=== PATIENT | male | born 1980 | race Caucasian/White ===

== ENCOUNTER 2020-06-11 12:51 | Outpatient (CLI) | payer OTHER ==
--- NOTE | 2020-06-11 14:06 | MRI Report ---
PROCEDURE: Lumbar Spine W/O INDICATIONS: LOW BACK PAIN TECHNIQUE: Noncontrast sagittal T1 spin echo and T2 fast echo, sagittal STIR, axial T1 and T2 fast spin echo thr ough the lumbar spine. In cases with scoliosis, additional coronal T2 fast spin echo may be performe d. COMPARISON: Plain films dated 05.20.20 FINDINGS: Image quality: Excellent. Alignment and Curvature: 5 lumbar type vertebral bodies are present by plain film. Minimal grade 1 r etrolisthesis of L4 on L5. There is otherwise normal bony alignment. Bone Marrow: Marrow is of normal overall signal. No acute vertebral body compression fractures. Mi ld reactive signal within the end plates adjacent to the L4-L5 intervertebral disc. Spinal Cord: Conus medullaris terminates at the upper L1 level. Visualized cord demonstrates normal signal and size. Paraspinous Soft Tissues: No paravertebral masses. T12-L1: Normal in appearance. L1-L2: Normal in appearance. L2-L3: Normal in appearance. L3-L4: Mild facet and ligament flavum hypertrophy. Mild canal stenosis. Mild bilateral foraminal st enosis. L4-L5: Mild disc height loss and desiccation. Mild diffuse disc bulge with superimposed left parace ntral protrusion. Mild facet and ligament flavum hypertrophy. Mild canal stenosis. Moderate subarticu lar foraminal stenosis bilaterally. L5-S1: Normal in appearance. IMPRESSION: 1. Multilevel degenerative disc and facet disease, in addition to epidural lipomatosis and ligamentum flavum hypertrophy. 2. Mild multilevel canal stenoses. 3. Multilevel foraminal stenoses, worst at L4-L5 bilaterally where there are moderate foraminal steno ses present. Reviewed by: Skyler Whalen MD on 06/11/2020 2:04 PM PDT Approved by: Skyler Whalen MD on 06/11/2020 2:04 PM PDT Station ID: [id number]
== END 2020-06-11 12:52 | disposition home or self-care (01) ==
LOC: DI 12:51
PROVIDERS: ATTEND Student in an Organized Health Care Education/Training Program
DX: M47.816 Spondylosis without myelopathy or radiculopathy, lumbar region (principal); M51.36 Other intervertebral disc degeneration, lumbar region; M48.061 Spinal stenosis, lumbar region without neurogenic claudication; M51.26 Other intervertebral disc displacement, lumbar region
CPT/HCPCS: 72148

== ENCOUNTER 2021-02-02 18:13 | Emergency (ER) | payer OTHER ==
[2021-02-02] MEDS ORDERED: HYDROmorphone 1 MG/ML CARPUJECT IM STA (19:12)
[2021-02-02] MEDS ORDERED: KETOROLAC 60 MG/2 ML VIAL IM STA (19:50)
--- NOTE | 2021-02-02 20:00 | ED Physician Documentation ---
History of Present Illness - Stated complaint Stated Complaint: BACK PX - Chief complaint Chief Complaint: Back Pain - Additonal information Additional information: 41-year-old male comes to the emergency department for evaluation of his low back pain. He does have a history of intermittent low back pain and did have an MRI in May 2020 that showed multilevel degenerative disc disease. 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 He drank chart tart mccann juice and use an inversion table which improved the pain. However over the weekend he began to workout again and on Sunday yesterday he pushed himself hard. Since then he has been having worsening pain. He took methocarbamol at home but nothing else for analgesia. He denies fevers, saddle anesthesia, loss of bowel or bladder control. He has no history of injection drug use or cancer. No history of fevers or diabetes. Though uncomfortable he is ambulatory without assistance. Review of Systems Constitutional: denies: Fever, Chills Eyes: reports: Reviewed and negative Ears: reports: Reviewed and negative Nose: reports: Reviewed and negative Throat: reports: Reviewed and negative Cardiac: reports: Reviewed and negative Respiratory: reports: Reviewed and negative GI: reports: Reviewed and negative : reports: Reviewed and negative Skin: denies: Rash, Lesions Musculoskeletal: reports: Back pain Neurologic: denies: Generalized weakness, Focal weakness, Numbness PD PAST MEDICAL HISTORY - Past Medical History Past Medical History: Yes Cardiovascular: None Respiratory: None Neuro: None Endocrine/Autoimmune: None GI: None : None HEENT: None Psych: None Musculoskeletal: None Derm: None - Past Surgical History Past Surgical History: No - Present Medications Home Medications: Ambulatory Orders Medication Instructions Recorded Confirmed methocarbamoL [Robaxin] 500 mg PO Q6H PRN #30 tablet 05/20/20 02/02/21 Cyclobenzaprine [Flexeril] 10 mg PO TID PRN #20 tablet 02/02/21 Ibuprofen [Motrin] 600 mg PO Q6H PRN #30 tab 02/02/21 - Allergies Allergies/Adverse Reactions: Allergies Allergy/AdvReac Type Severity Reaction Status Date / Time No Known Drug Allergies Allergy Verified 05/20/20 13:23 - Social History Does the pt smoke?: No Smoking Status: Never smoker Does the pt drink ETOH?: No Does the pt have substance abuse?: No - Immunizations Immunizations are current?: Yes - POLST Patient has POLST: No PD ED PE EXPANDED - General General: Alert, No acute distress - Back Back: Soft tissue tenderness (Generalized lower paraspinous tenderness to palpation. Nonfocal. No midline spinous process tenderness. Reduced range of motion forward flexion. Muscle strength 5 of 5 bilateral lower extremities. Normal sensation. Able to raise great toes and walk on heels.). 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 This episode developed after an extended workout. He has no red flags on exam. Here in the emergency department he was given Dilaudid with moderate relief of pain followed by Toradol with marked improvement. Patient will be discharged with prescription for ibuprofen as well as Flexeril. I advised rest from exercise until symptoms improve. Also close follow-up with primary care provider would likely benefit from physical therapy. Departure - Departure Disposition: 01 Home, Self Care Clinical Impression: Low back pain Qualifiers: Chronicity: acute Back pain laterality: bilateral Sciatica presence: without sciatica Qualified Code(s): M54.5 - Low back pain Condition: Stable Record reviewed to determine appropriate education?: Yes Instructions: ED Low Back Pain Injury, ED Sprain Strain Lumbar Follow-Up: AMAYA HALL MD [Primary Care Provider] - Prescriptions: Cyclobenzaprine [Flexeril] 10 mg PO TID PRN #20 tablet PRN Reason: Spasms Ibuprofen [Motrin] 600 mg PO Q6H PRN #30 tab PRN Reason: Pain Comments: Meng the back pain is likely secondary to degenerative disc disease that was seen on the MRI completed in May 2020. With flares of back pain we do recommend that you take ibuprofen with food 2-3 times a day. I have prescribed this. I have also prescribed Flexeril a muscle relaxer to help with muscle spasm. Do not drive if taking this medication it makes it unsafe. Most back pain will resolve after 1 to 2 weeks. However I do recommend that you follow-up with your primary care provider to obtain a referral for physical therapy. If at any point you develop numbness or tingling between your legs, cannot control your bowel or bladder function or feel that your symptoms are suddenly worse please return immediately to the ER for a second look.
[2021-02-02 20:35] VITALS: BP 106/71
== END 2021-02-02 20:22 | disposition home or self-care (01) ==
LOC: ED 18:13
DX: M54.5 Low back pain (principal); G89.29 Other chronic pain
CPT/HCPCS: 96372; 99283; J1170